=== PATIENT | female | born 1970 | race Two or more races ===

== ENCOUNTER 2021-04-13 17:41 | Emergency (ER) | payer MEDICAID, OTHER ==
[~2021-04-13] VITALS: Ht 157.5 cm; Wt 101.6 kg
[2021-04-13] MEDS ORDERED: ALBUTEROL SULF 2.5 MG/0.5ML(0.5%) NEB SOLN HHN STA (18:15)
[2021-04-13] MEDS ORDERED: IPRATROPIUM BROM 0.5 MG/2.5ML INH SOL NEB ONE ×2 (18:15→20:30)
[2021-04-13 18:38] LABS: Basophils # (auto) 0 10 ^3/uL (0-0.2); Eosinophils # (auto) 0.3 10 ^3/uL (0-0.8); Lymphocytes # (auto) 1.3 10 ^3/uL (0.4-5.4); Lymphocytes % (auto) 26.4 % (10.0-50.0); Neutrophils # (auto) 2.8 10 ^3/uL (1.6-8.6); Nucleated Red Blood Cells % 0.1 %; White Blood Cell 4.9 10^3/uL (4.4-10.8)
[2021-04-13 18:41] LABS: Basophils % (auto) 0.9 % (0.0-2.0); Eosinophils % (auto) 6.1 % (0.0-7.0); Hematocrit 39.9 % (36.0-46.0); Hemoglobin 13.2 g/dL (12.2-16.2); Mean Corpuscular Hemoglobin 26.5 pg (28.0-32.0); Mean Corpuscular Volume 80.1 fL (80.0-100.0); Monocytes # (auto) 0.4 10 ^3/uL (0-1.3); Monocytes % (auto) 9.2 % (0.0-12.0); Neutrophils % (auto) 57.4 % (37.0-80.0); Red Blood Cells 4.98 10^6/uL (4.0-5.20)
[2021-04-13 18:55] LABS: Albumin 3.6 g/dL (3.4-5.0); Calcium 8.5 mg/dL (8.5-10.1); Magnesium 2.5 mg/dL (1.6-2.6)
[2021-04-13 19:00] LABS: BUN/Creatinine Ratio 23.3; Bilirubin, Total 0.5 mg/dL (0.2-1.0); Total Protein 7.8 g/dL (6.4-8.2)
[2021-04-13] MEDS ORDERED: ALBUTEROL SULF 2.5 MG/0.5ML(0.5%) NEB SOLN NEB ONE (20:30)
[2021-04-13] MEDS ORDERED: DexAMETHasone 4 MG TAB PO ONE (20:30)
[2021-04-13] MEDS ORDERED: IOHEXOL 350 MG/ML 100ML IJ ONE (23:42)
[2021-04-14 03:26] VITALS: BP 147/95
== END 2021-04-14 04:01 | disposition home or self-care (01) ==
LOC: ER 17:41
DX: R06.02 Shortness of breath (principal); R06.2 Wheezing; E78.5 Hyperlipidemia, unspecified
CPT/HCPCS: 36415; 71046; 71275; 80053; 83735; 83880; 84484; 85025; 93005; 94640; 99285; J7644; J8540; Q9967

== ENCOUNTER 2022-04-06 21:17 | Emergency (ER) | payer MEDICAID ==
[~2022-04-06] VITALS: Ht 154.9 cm; Wt 97.6 kg
[2022-04-07] MEDS ORDERED: IBUP800T27 PO (01:24)
[2022-04-07] MEDS ORDERED: CYCL-837 PO (01:24)
[2022-04-07] MEDS ORDERED: KETOROLAC TROMETH 60MG/2ML VIAL IM ONE (01:30)
[2022-04-07 01:42] VITALS: BP 139/78
== END 2022-04-07 02:28 | disposition home or self-care (01) ==
LOC: ER 21:20
DX: S39.012A Strain of muscle, fascia and tendon of lower back, initial encounter (principal); E78.5 Hyperlipidemia, unspecified; Z90.710 Acquired absence of both cervix and uterus; Z79.1 Long term (current) use of non-steroidal anti-inflammatories (NSAID); Z79.899 Other long term (current) drug therapy; Z88.8 Allergy status to other drugs, medicaments and biological substances; X58.XXXA Exposure to other specified factors, initial encounter; Y93.89 Activity, other specified; Y92.89 Other specified places as the place of occurrence of the external cause; Y99.8 Other external cause status
CPT/HCPCS: 72100; 81002; 96372; 99283; J1885